=== PATIENT | female | born 1980 | race Two or more races ===

== ENCOUNTER 2018-06-27 17:10 | Inpatient (IN) | payer OTHER ==
[~2018-06-27] VITALS: Ht 149.9 cm; Wt 68.0 kg
[2018-06-27] MEDS ORDERED: ONDANSETRON 2MG/ML, 2ML IVPush ONE ×2 (17:30→21:30)
[2018-06-27] MEDS ORDERED: MORPHINE SULFATE 4 MG/ML, 1ML IVPush PRN (17:30)
[2018-06-27] MEDS ORDERED: ONDANSETRON 2MG/ML, 2ML ONE ×3 (17:31→20:58)
[2018-06-27] MEDS ORDERED: MORPHINE SULFATE 4 MG/ML, 1ML ONE (17:32)
[2018-06-27 18:50] VITALS: BP 117/84
[2018-06-27 19:02] LABS: BASOPHILS # (AUTO) 0.06 x10^3/uL (0-0.1); BASOPHILS % (AUTO) 1 % (0-1); EOSINOPHILS # (AUTO) 0.05 x10^3/uL (0-0.4); EOSINOPHILS % (AUTO) 1 % (1-7); LYMPHOCYTES # (AUTO) 3.16 x10^3/uL (1-3.4); LYMPHOCYTES % (AUTO) 28 % (22-44); MD NO; MEAN CORPUSCULAR HEMOGLOBIN 32.1 pg (27.0-34.8); MEAN CORPUSCULAR HGB CONC 33.7 g/dL (32.4-35.8); MEAN CORPUSCULAR VOLUME 95.3 fL (80-100); MEAN PLATELET VOLUME 8.8 fL (7.4-10.4); MONOCYTES # (AUTO) 0.64 x10^3/uL (0.2-0.8); MONOCYTES % (AUTO) 6 % (2-9); NEUTROPHILS # (AUTO) 7.41 x10^3/uL (1.8-6.8); NEUTROPHILS % (AUTO) 66 % (42-75); PLATELET COUNT 219 x10^3/uL (130-400); RED BLOOD COUNT 4.59 x10^6/uL (3.82-5.3); RED CELL DISTRIBUTION WIDTH 13.9 % (9.6-15.2)
[2018-06-27] MEDS ORDERED: FENTANYL PF 250 MCG/5ML ONE (19:07)
[2018-06-27] MEDS ORDERED: MIDAZOLAM 1 MG/ML, 2ML ONE (19:07)
[2018-06-27] MEDS ORDERED: BUPIVACAINE/PF 0.25% ONE (19:10)
[2018-06-27] MEDS ORDERED: EPINEPHRINE 1 MG/ML, 1ML ONE (19:10)
[2018-06-27] MEDS ORDERED: SILVER NITRATE STICK TP ONE (19:10)
[2018-06-27] MEDS ORDERED: DEXAMETHASONE 4 MG/ML, 1ML ONE (19:19)
[2018-06-27] MEDS ORDERED: PROPOFOL 10 MG/ML, 20ML ONE (19:19)
[2018-06-27] MEDS ORDERED: GLYCOPYRROLATE 0.2MG/1ML, 5ML ONE (19:19)
[2018-06-27] MEDS ORDERED: CEFAZOLIN 1,000 MG ONE (19:19)
[2018-06-27] MEDS ORDERED: NEOSTIGMINE 1 MG/ML, 10ML ONE (19:19)
[2018-06-27] MEDS ORDERED: SUCCINYLCHOLINE 20 MG/ML, 10ML ONE (19:19)
[2018-06-27] MEDS ORDERED: VASOPRESSIN 20 UNIT/ML, 1ML ONE (19:29)
[2018-06-27] MEDS ORDERED: BUPIVACAINE/PF-EPI 0.25% 1:200K IM ONE (19:39)
[2018-06-27] MEDS ORDERED: DIAZEPAM 5 MG/ML, 2ML IVPush PRN (20:00)
[2018-06-27] MEDS ORDERED: hydrALAzine 20 MG/ML, 1ML IV PRN (20:00)
[2018-06-27] MEDS ORDERED: ACETAMINOPHEN 325 MG TABLET PO PRN (20:00)
[2018-06-27] MEDS ORDERED: PROMETHAZINE 25 MG/ML, 1ML IV PRN (20:00)
[2018-06-27] MEDS ORDERED: MEPERIDINE/PF 25MG/0.5ML IVPush PRN (20:00)
[2018-06-27] MEDS ORDERED: LABETALOL 5MG/ML, 20ML IV PRN (20:00)
[2018-06-27] MEDS ORDERED: ALBUTEROL SULFATE 2.5 MG/3 ML NPPB PRN (20:00)
[2018-06-27] MEDS ORDERED: HYDROmorphone 2 MG/ML, 1ML IVPush PRN (20:00)
[2018-06-27] MEDS ORDERED: FENTANYL PF 100 MCG/2ML IV PRN ×2 (20:00→22:00)
[2018-06-27] MEDS ORDERED: MEPERIDINE/PF 50 MG/ML ONE (20:17)
[2018-06-27] MEDS ORDERED: OXYcodone 5 MG/5 ML ORAL.SOL UDC ONE ×2 (20:54→21:11)
[2018-06-27] MEDS: OXYcodone 5 MG/5 ML ORAL.SOL UDC PO PRN ×2 (20:56→21:14)
[2018-06-27] MEDS ORDERED: OXYcodone 5 MG/5 ML ORAL.SOL UDC PO PRN (22:00)
[2018-06-27] MEDS ORDERED: KETOROLAC 30 MG/1 ML IV PRN (22:00)
[2018-06-27] MEDS ORDERED: PROMETHAZINE 25 MG SUPP PR ONE (22:00)
[2018-06-27] MEDS ORDERED: ONDANSETRON 2MG/ML, 2ML IV PRN (22:00)
[2018-06-27] MEDS ORDERED: DOCU-131 PO (22:06)
[2018-06-27] MEDS ORDERED: OXYC-302 PO (22:08)
[2018-06-27] MEDS ORDERED: IBUP-1223 PO (22:09)
== END 2018-06-27 23:02 | disposition home or self-care (01) | DRG 819 ==
LOC: ED 17:24 → OBSVTOIN 18:11 → EDIP 18:11 → 4NOR 21:27
PROVIDERS: ADMIT Obstetrics & Gynecology; ATTEND Obstetrics & Gynecology
PROC: 10T24ZZ Resection of Products of Conception, Ectopic, Percutaneous Endoscopic Approach (ICD-10-PCS; 2018-06-27)
PROC: 0UB54ZZ Excision of Right Fallopian Tube, Percutaneous Endoscopic Approach (ICD-10-PCS; principal; 2018-06-27 19:00)
DX: O00.101 Right tubal pregnancy without intrauterine pregnancy (principal); Z83.3 Family history of diabetes mellitus; Z87.59 Personal history of other complications of pregnancy, childbirth and the puerperium
CPT/HCPCS: 36415; 99285; J3490; 85025; 86850; 86900; 88305; 96374; 96375; G0378; J0171; J0690; J1100; J2175; J2250; J2405; J2704; J2710; J3010; J0330